=== PATIENT | female | born 2000 | race Caucasian/White ===

== ENCOUNTER 2020-05-14 20:25 | Emergency (ER) | payer MEDICAID ==
[~2020-05-14] VITALS: Ht 162.6 cm; Wt 91.0 kg
[2020-05-14 20:29] VITALS: BP 140/88
[2020-05-14] MEDS ORDERED: TRAMADOL 50MG TABLET PO ONE (21:30)
== END 2020-05-14 23:01 | disposition home or self-care (01) ==
LOC: ER 20:25
DX: S96.911A Strain of unspecified muscle and tendon at ankle and foot level, right foot, initial encounter (principal); I49.9 Cardiac arrhythmia, unspecified; X58.XXXA Exposure to other specified factors, initial encounter; Y93.89 Activity, other specified; Y92.89 Other specified places as the place of occurrence of the external cause; Y99.8 Other external cause status
CPT/HCPCS: 73562; 73610; 93005; 99284; L1830